=== PATIENT | male | born 1945 | race American Indian/Alaskan Native ===

== ENCOUNTER 2017-12-31 08:54 | Outpatient (CLI) | payer MEDICARE ==
[2017-12-31] MEDS ORDERED: SILVER NITRATE TP ONE ×2 (10:00→15:44)
== END 2017-12-31 08:55 | disposition home or self-care (01) ==
LOC: WOUND 08:54
PROVIDERS: ATTEND Surgery
DX: L89.313 Pressure ulcer of right buttock, stage 3 (principal); L89.622 Pressure ulcer of left heel, stage 2; L89.153 Pressure ulcer of sacral region, stage 3; I50.9 Heart failure, unspecified; I25.2 Old myocardial infarction; M06.9 Rheumatoid arthritis, unspecified
CPT/HCPCS: 11042; 11043; 11045; 97597; G0463; 99215

== ENCOUNTER 2018-01-07 09:41 | Outpatient (CLI) | payer MEDICARE ==
[2018-01-07] MEDS ORDERED: XYLOCAINE TOPICAL 4% TP ONE ×2 (09:54→10:17)
== END 2018-01-07 09:42 | disposition home or self-care (01) ==
LOC: WOUND 09:41
PROVIDERS: ATTEND Surgery
DX: L89.313 Pressure ulcer of right buttock, stage 3 (principal); L89.622 Pressure ulcer of left heel, stage 2; L89.153 Pressure ulcer of sacral region, stage 3; I50.9 Heart failure, unspecified; I25.2 Old myocardial infarction; M06.9 Rheumatoid arthritis, unspecified

== ENCOUNTER 2018-01-28 09:45 | Outpatient (CLI) | payer MEDICARE ==
[2018-01-28] MEDS ORDERED: XYLOCAINE TOPICAL 4% TP ONE ×2 (09:48→10:05)
== END 2018-01-28 09:46 | disposition home or self-care (01) ==
LOC: WOUND 09:45
PROVIDERS: ATTEND Surgery
DX: L89.313 Pressure ulcer of right buttock, stage 3 (principal); L89.622 Pressure ulcer of left heel, stage 2; L89.153 Pressure ulcer of sacral region, stage 3; I50.9 Heart failure, unspecified; I25.2 Old myocardial infarction; M06.9 Rheumatoid arthritis, unspecified; G82.21 Paraplegia, complete
CPT/HCPCS: 97605